=== PATIENT | male | born 1955 | race Two or more races ===

== ENCOUNTER → 2023-07-16 | Outpatient (CLI) | payer MEDICAID ==
[2023-07-16 11:03] LABS: Basophils # (auto) 0 10 ^3/uL (0-0.2); Basophils % (auto) 0.3 % (0.0-2.0); Eosinophils # (auto) 0.1 10 ^3/uL (0-0.8); Eosinophils % (auto) 1.8 % (0.0-7.0); Hematocrit 43.3 % (41.0-53.0); Hemoglobin 14.6 g/dL (13.5-17.5); Lymphocytes # (auto) 1.3 10 ^3/uL (0.4-5.4); Lymphocytes % (auto) 28.7 % (10.0-50.0); Mean Corpuscular Hemoglobin 29.9 pg (28.0-32.0); Mean Corpuscular Hgb Conc. 33.8 g/dL (32.0-36.0); Mean Corpuscular Volume 88.4 fL (80.0-100.0); Monocytes # (auto) 0.4 10 ^3/uL (0-1.3); Monocytes % (auto) 8.9 % (0.0-12.0); Neutrophils # (auto) 2.8 10 ^3/uL (1.6-8.6); Neutrophils % (auto) 60.3 % (37.0-80.0); Nucleated Red Blood Cells % 0.1 %; Red Blood Cells 4.89 10^6/uL (4.5-5.90); Red Cell Distribution Width 13.5 % (11.8-14.3); White Blood Cell 4.6 10^3/uL (4.4-10.8)
[2023-07-16 11:09] LABS: Urine Bacteria NONE SEEN /hpf (None Seen); Urine Blood Negative /uL (Negative); Urine Clarity Clear (Clear); Urine Color Yellow (Yellow); Urine Mucus FEW (None Seen); Urine Protein, UAD TRACE (Negative); Urine Urobilinogen Normal (Negative); Urine WBC 1 /hpf (0 - 3); Urine pH 5.5 (5.0-8.0)
[2023-07-16 11:31] LABS: INR 1.06 (0.9-1.15); Prothrombin Time 11.1 sec (9.3-11.8)
[2023-07-16 11:39] LABS: Potassium 4.1 mmol/L (3.5-5.1)
[2023-07-16 11:46] LABS: Albumin 3.6 g/dL (3.4-5.0); BUN/Creatinine Ratio 18.5 (10.0-20.0); Bilirubin, Total 0.5 mg/dL (0.2-1.0); Calcium 8.3 mg/dL (8.5-10.1); Total Protein 7.3 g/dL (6.4-8.2)
== END | disposition home or self-care (01) ==
LOC: LAB 10:49
PROVIDERS: ATTEND Orthopaedic Surgery
DX: Z01.812 Encounter for preprocedural laboratory examination (principal)
CPT/HCPCS: 36415; 80053; 81001; 85025; 85610; 85730

== ENCOUNTER → 2023-07-22 | Day surgery (SDC) | payer MEDICARE, MEDICAID ==
[~2023-07-22] VITALS: Ht 170.2 cm; Wt 77.1 kg
[~2023-07-22] MED LIST: ACCU-CHEK COMFORT CURVE STRIP VI ONE; ASPI81CH59 PO; ATOR-47 PO; BACITRACIN TOP OINT 1 UD PKG TOP ONE; BUPIVACAINE 0.25% INJ 50ML VIAL ONE; BUPIVACAINE W/ EPINEPH 0.5% INJ 50ML MDV IJ ONE; CEPH250C PO; CHOLTAB12 PO; DOCU-94 PO; DexAMETHasone SOD PHOS 10MG/1ML VIAL INJ ONE; FAMOTIDINE (10MG/ML) 2ML VL IV ONE; FLUO20TA36 PO; GLYCOPYRROLATE 0.2 MG/ML 1ML VIAL ONE; HYDROmorphone HCL 2 MG/ML VL/or syr IV ONE; HYDROmorphone HCL 2 MG/ML VL/or syr IV PRN; HYDROmorphone HCL 2 MG/ML VL/or syr ONE; IBUP-1456 PO; INSRTEST IV; INSU1INJ19 SC; INSUINJ2 SC; KETAMINE 50mg/ML 10ml Vial (500mg/10ml) IV ONE; KETOROLAC TROMETH 30 MG/ML 1ML VIAL ONE; LIDOCAINE 1% HCL (LOCAL ANESTH.) INJ 20ML MDV ONE; LIDOCAINE 1%-Mpf/Epinephrine 1:200,000 30ml VIAL ONE; LIDOCAINE 2% (LOCAL ANESTH.) PF 5ml SDV ONE; LIDOCAINE 2% JELLY 11ml (GLYDO) ONE; LIDOCAINE W/ EPINEPHRINE 1% 20ML VIAL ONE; LOSA50TA46 PO; MELO-335 PO; METF-372 PO; MIDAZOLAM HCL 2MG/2ML 2ml VIAL (1mg/ml) IV ONE; MIDAZOLAM HCL 2MG/2ML 2ml VIAL (1mg/ml) ONE; OMEP20TA PO; ONDANSETRON HCL 4 MG/2 ML VIAL IV ONE; ONDANSETRON HCL 4 MG/2 ML VIAL IV PRN; ONDANSETRON HCL 4 MG/2 ML VIAL ONE; PROMETHAZINE HCL 25 MG/ML 1ML IM ONE; PROPOFOL 10 MG/ML 20 ML IV ONE; TRAZ-181 PO; ceFAZolin 1GM/50ML 100 ML IV ONE; fentaNYL CITRATE 100 MCG/2 ML VL ONE
[2023-07-22 11:08] VITALS: PULSE 93; RESP 11; TEMP 98.1; O2SAT 99
[2023-07-22 13:15] VITALS: BP 143/71; PULSE 100; RESP 14; O2SAT 95
== END | disposition home or self-care (01) ==
LOC: SUR 08:43
PROVIDERS: ATTEND Orthopaedic Surgery
DX: S52.292 Other fracture of shaft of left ulna (principal); E11.9 Type 2 diabetes mellitus without complications; X58.XXXA Exposure to other specified factors, initial encounter; Y93.89 Activity, other specified; Y92.89 Other specified places as the place of occurrence of the external cause; Y99.8 Other external cause status
CPT/HCPCS: 25545; 73090; 76000; 82962; C1713; J0690; J1100; J1170; J1885; J2001; J2250; J2405; J2550; J2704; J3010; J3490